=== PATIENT | female | born 1990 | race Caucasian/White ===

== ENCOUNTER 2018-03-13 07:46 | Inpatient (IN) | payer OTHER ==
[~2018-03-13] VITALS: Ht 157.5 cm; Wt 87.0 kg
[2018-03-13] MEDS ORDERED: OXYTOCIN 30U/ 0.9% NaCL 500ML 500 ML IV ONE (20:18)
[2018-03-13] MEDS ORDERED: D5%-LACTATED RINGERS 1,000 ML IV SCH (20:18)
[2018-03-13] MEDS ORDERED: OXYTOCIN 30U/ 0.9% NaCL 500ML 500 ML IV PRN (20:18)
[2018-03-13] MEDS ORDERED: AMPICILLIN 2 GM in SODIUM CHLORIDE 0.9% 100 ML IVPB STA (20:18)
[2018-03-13] MEDS ORDERED: FENTANYL PF 100 MCG/2ML IV PRN (20:30)
[2018-03-13] MEDS ORDERED: TERBUTALINE 1 MG/ML, 1ML IVPush PRN (20:30)
[2018-03-13] MEDS ORDERED: ONDANSETRON 2MG/ML, 2ML IVPush PRN (20:30)
[2018-03-13] MEDS ORDERED: CALCIUM CARBONATE 500 MG TAB.CHEW PO PRN (20:30)
[2018-03-13] MEDS ORDERED: FENTANYL PF 100 MCG/2ML IVPush PRN (20:30)
[2018-03-13] MEDS ORDERED: NEWBORN KIT ONE (20:38)
[2018-03-13] MEDS ORDERED: LIDOCAINE/PF 1%, 30ML ONE (20:38)
[2018-03-13] MEDS ORDERED: OXYTOCIN 30U/ 0.9% NaCL 500ML 500 ML ONE (20:38)
[2018-03-13] MEDS ORDERED: MISOPROSTOL 200 MCG TABLET ONE (20:39)
[2018-03-13] MEDS ORDERED: MISOPROSTOL 25 MCG TABLET ONE (20:39)
[2018-03-13 20:41] LABS: BASOPHILS # (AUTO) 0.06 x10^3/uL (0-0.1); BASOPHILS % (AUTO) 0 % (0-1); EOSINOPHILS # (AUTO) 0.16 x10^3/uL (0-0.4); EOSINOPHILS % (AUTO) 1 % (1-7); LYMPHOCYTES % (AUTO) 12 % (22-44); MD NO; MEAN CORPUSCULAR HEMOGLOBIN 31.6 pg (27.0-34.8); MEAN CORPUSCULAR HGB CONC 34.2 g/dL (32.4-35.8); MEAN CORPUSCULAR VOLUME 92.2 fL (80-100); MEAN PLATELET VOLUME 9.2 fL (7.4-10.4); MONOCYTES # (AUTO) 0.97 x10^3/uL (0.2-0.8); MONOCYTES % (AUTO) 6 % (2-9); NEUTROPHILS # (AUTO) 12.55 x10^3/uL (1.8-6.8); NEUTROPHILS % (AUTO) 81 % (42-75); PLATELET COUNT 243 x10^3/uL (130-400); RED BLOOD COUNT 4.02 x10^6/uL (3.82-5.3); RED CELL DISTRIBUTION WIDTH 13.5 % (9.6-15.2)
[2018-03-13] MEDS: MISOPROSTOL 25 MCG TABLET VG PRN (20:50)
[2018-03-13] MEDS: LACTATED RINGERS 1,000 ML IV SCH (21:35)
[2018-03-14] MEDS ORDERED: AMPICILLIN 1 GM in SODIUM CHLORIDE 0.9% 100 ML IVPB SCH (00:30)
[2018-03-14] MEDS ORDERED: MISOPROSTOL 25 MCG TABLET ONE (02:31)
[2018-03-14] MEDS: MISOPROSTOL 25 MCG TABLET VG PRN (02:54)
[2018-03-14] MEDS: AMPICILLIN 1 GM in SODIUM CHLORIDE 0.9% 100 ML IVPB SCH ×4 (05:20→16:57)
[2018-03-14] MEDS: LACTATED RINGERS 1,000 ML IV SCH ×3 (06:57→12:07)
[2018-03-14] MEDS ORDERED: FENTANYL/BUPIV./NS/PF 250 ML EPIDCONT SCH ×2 (09:34→14:21)
[2018-03-14] MEDS ORDERED: FENTANYL PF 100 MCG/2ML ONE ×2 (10:16→10:21)
[2018-03-14] MEDS ORDERED: BUPIVACAINE 0.25% ONE (10:21)
[2018-03-14] MEDS ORDERED: FENTANYL PF 500 MCG, BUPIVACAINE/PF 0.5%, 30ML 62.5 ML in SODIUM CHLORIDE 0.9% 177.5 ML EPIDCONT SCH (10:30)
[2018-03-14] MEDS ORDERED: LACTATED RINGERS 1,000 ML IV SCH (14:21)
[2018-03-14] MEDS ORDERED: ONDANSETRON 2MG/ML, 2ML IVPush PRN (14:30)
[2018-03-14] MEDS ORDERED: EPHEDRINE 50 MG/ML, 1ML IVPush PRN (14:30)
[2018-03-14] MEDS ORDERED: LACTATED RINGERS 1,000 ML IVBOLUS PRN (14:30)
[2018-03-15] MEDS ORDERED: OXYTOCIN 30U/ 0.9% NaCL 500ML 500 ML IV SCH (05:34)
[2018-03-15] MEDS ORDERED: OXYTOCIN 30U/ 0.9% NaCL 500ML 500 ML ONE (05:34)
[2018-03-15] MEDS ORDERED: METHYLERGONOVINE 0.2 MG/ML IM PRN (06:00)
[2018-03-15] MEDS ORDERED: CARBOPROST TROMETHAMINE 250 MCG/ML, 1ML IM PRN (06:00)
[2018-03-15] MEDS ORDERED: DIPH,PERTUSS(ACELL),TET VAC/PF NC IM-VACC PRN (06:00)
[2018-03-15] MEDS ORDERED: RHOGAM FROM BLOOD BANK 1 NOTE EA IM/IV ONE (06:00)
[2018-03-15] MEDS ORDERED: MEASLES,MUMPS&RUBELLA VACC/PF 0.5 ML SQ PRN (06:00)
[2018-03-15] MEDS ORDERED: MISOPROSTOL 200 MCG TABLET PR PRN (06:00)
[2018-03-15] MEDS ORDERED: MISOPROSTOL 200 MCG TABLET PO PRN (06:00)
[2018-03-15] MEDS ORDERED: ACETAMINOPHEN 325 MG TABLET PO PRN (06:00)
[2018-03-15 08:15] VITALS: BP 117/75
[2018-03-15] MEDS: PRENATAL VIT/IRON/FA 1 EACH TABLET PO SCH (08:33)
[2018-03-15] MEDS: DOCUSATE 100 MG CAPSULE PO PRN ×2 (08:33→20:28)
[2018-03-15] MEDS: OXYcodone/APAP 5/325MG TABLET PO PRN ×3 (08:34→16:57)
[2018-03-15] MEDS: IBUPROFEN 600 MG TABLET PO PRN ×3 (08:34→20:28)
[2018-03-15 12:30] VITALS: BP 111/69
[2018-03-15 14:22] LABS: MEAN CORPUSCULAR HEMOGLOBIN 31.5 pg (27.0-34.8); MEAN CORPUSCULAR HGB CONC 34.3 g/dL (32.4-35.8); MEAN CORPUSCULAR VOLUME 91.8 fL (80-100); MEAN PLATELET VOLUME 9.2 fL (7.4-10.4); PLATELET COUNT 200 x10^3/uL (130-400); RED BLOOD COUNT 3.93 x10^6/uL (3.82-5.3); RED CELL DISTRIBUTION WIDTH 13.6 % (9.6-15.2)
[2018-03-15 15:15] LABS: MD YES
[2018-03-15 15:21] LABS: BANDS%(MANUAL) 6 % (0-7); EOS#(MANUAL) 0.27 x10^3/uL (0.0-0.4); EOS% (MANUAL) 1 % (1-7); LYMPH#(MANUAL) 2.39 x10^3/uL (1-3.4); LYMPHS% (MANUAL) 9 % (22-44); MONOS#(MANUAL) 1.33 x10^3/uL (0.3-2.7); MONOS% (MANUAL) 5 % (2-9); SEG#(MANUAL) 21.01 x10^3/uL (1.8-6.8); SEGS% (MANUAL) 79 % (42-75)
[2018-03-15 15:22] LABS: <PLATELET ESTIMATE> ADEQUATE; <PLT MORPHOLOGY> NORMAL PLT MORPH; ANISOCYTOSIS 1+; POLYCHROMASIA 1+
[2018-03-15 16:30] VITALS: BP 104/68
[2018-03-15 19:53] VITALS: BP 117/75
[2018-03-16 00:45] VITALS: BP 99/65
[2018-03-16 04:20] VITALS: BP 105/68
[2018-03-16] MEDS: IBUPROFEN 600 MG TABLET PO PRN ×2 (05:00→12:24)
[2018-03-16] MEDS: OXYcodone/APAP 5/325MG TABLET PO PRN ×2 (05:05→12:24)
[2018-03-16 07:34] VITALS: BP 99/66
[2018-03-16] MEDS: DOCUSATE 100 MG CAPSULE PO PRN (08:06)
[2018-03-16] MEDS: PRENATAL VIT/IRON/FA 1 EACH TABLET PO SCH (08:06)
[2018-03-16] MEDS ORDERED: IBUP-1222 PO (09:51)
[2018-03-16] MEDS ORDERED: OXYC-302 PO (09:52)
== END 2018-03-16 12:50 | disposition home or self-care (01) | DRG 807 ==
LOC: LDIP 19:51 → 2NW 03-15 07:57
PROVIDERS: ADMIT Obstetrics & Gynecology Maternal & Fetal Medicine; ATTEND Obstetrics & Gynecology Maternal & Fetal Medicine
PROC: 10E0XZZ Delivery of Products of Conception, External Approach (ICD-10-PCS; principal; 2018-03-15)
PROC: 0KQM0ZZ Repair Perineum Muscle, Open Approach (ICD-10-PCS; 2018-03-15)
PROC: 3E033VJ Introduction of Other Hormone into Peripheral Vein, Percutaneous Approach (ICD-10-PCS; 2018-03-15)
PROC: 10907ZC Drainage of Amniotic Fluid, Therapeutic from Products of Conception, Via Natural or Artificial Opening (ICD-10-PCS; 2018-03-15)
PROC: 10H07YZ Insertion of Other Device into Products of Conception, Via Natural or Artificial Opening (ICD-10-PCS; 2018-03-15)
PROC: 3E0R3BZ Introduction of Anesthetic Agent into Spinal Canal, Percutaneous Approach (ICD-10-PCS; 2018-03-15)
PROC: 00HU33Z Insertion of Infusion Device into Spinal Canal, Percutaneous Approach (ICD-10-PCS; 2018-03-15)
DX: O69.1XX0 Labor and delivery complicated by cord around neck, with compression, not applicable or unspecified (principal); Z37.0 Single live birth; O70.1 Second degree perineal laceration during delivery; Z3A.39 39 weeks gestation of pregnancy; O99.824 Streptococcus B carrier state complicating childbirth; G89.18 Other acute postprocedural pain; O64.0XX0 Obstructed labor due to incomplete rotation of fetal head, not applicable or unspecified
CPT/HCPCS: 36415; 82803; 85025; 86850; 86900; G0378; J0290; J3010; J7120

== ENCOUNTER 2020-05-10 07:22 | Inpatient (IN) | payer OTHER ==
[~2020-05-10] VITALS: Ht 157.5 cm; Wt 86.0 kg
[~2020-05-10 07:22] MED LIST: IBUP-1222 PO; OXYC-302 PO
[2020-05-11] MEDS ORDERED: MISOPROSTOL 25 MCG TABLET VG PRN
[2020-05-11] MEDS ORDERED: METOCLOPRAMIDE 5 MG/ML, 2ML IVPush PRN
[2020-05-11] MEDS ORDERED: TERBUTALINE 1 MG/ML, 1ML IVPush PRN
[2020-05-11] MEDS ORDERED: D5%-LACTATED RINGERS 1,000 ML IV SCH
[2020-05-11] MEDS ORDERED: FENTANYL PF 100 MCG/2ML IV PRN
[2020-05-11] MEDS ORDERED: TERBUTALINE 1 MG/ML, 1ML SQ PRN
[2020-05-11] MEDS ORDERED: FENTANYL PF 100 MCG/2ML IVPush PRN
[2020-05-11] MEDS ORDERED: SODIUM CITRATE/CITRIC ACID 30 ML UDC PO PRN
[2020-05-11] MEDS ORDERED: OXYTOCIN 30U/ 0.9% NaCL 500ML 500 ML IV ONE
[2020-05-11] MEDS ORDERED: ONDANSETRON 2MG/ML, 2ML IVPush PRN
[2020-05-11] MEDS ORDERED: CALCIUM CARBONATE 500 MG TAB.CHEW PO PRN
[2020-05-11 00:04] LABS: BASOPHILS % (AUTO) 1 % (0-1); EOSINOPHILS % (AUTO) 1 % (1-7); LYMPHOCYTES % (AUTO) 15 % (22-44); MEAN CORPUSCULAR HEMOGLOBIN 30.8 pg (27.0-34.8); MEAN CORPUSCULAR HGB CONC 34.3 g/dL (32.4-35.8); MEAN PLATELET VOLUME 9.2 fL (7.4-10.4); MONOCYTES % (AUTO) 7 % (2-9); NEUTROPHILS % (AUTO) 76 % (42-75); PLATELET COUNT 220 x10^3/uL (130-400); RED BLOOD COUNT 3.68 x10^6/uL (3.82-5.3); RED CELL DISTRIBUTION WIDTH 14.2 % (9.6-15.2)
[2020-05-11] MEDS ORDERED: LIDOCAINE 1%, 20ML ONE (00:05)
[2020-05-11] MEDS ORDERED: NEWBORN KIT ONE (00:05)
[2020-05-11] MEDS ORDERED: MISOPROSTOL 25 MCG TABLET ONE (00:06)
[2020-05-11] MEDS ORDERED: OXYTOCIN 30U/ 0.9% NaCL 500ML 500 ML ONE ×2 (00:06→10:22)
[2020-05-11] MEDS ORDERED: MISOPROSTOL 200 MCG TABLET ONE (00:06)
[2020-05-11 00:29] LABS: MD SCAN
[2020-05-11] MEDS ORDERED: OXYTOCIN 30U/ 0.9% NaCL 500ML 500 ML IV PRN ×2 (06:30)
[2020-05-11] MEDS: LACTATED RINGERS 1,000 ML IV SCH ×2 (06:30→09:11)
[2020-05-11] MEDS ORDERED: PENICILLIN GK 5,000,000 UNITS in DEXTROSE 5% 100 ML IVPB ONE (06:30)
[2020-05-11] MEDS ORDERED: FENTANYL/BUPIV./NS/PF 250 ML EPIDCONT ONE (09:11)
[2020-05-11] MEDS ORDERED: LIDOCAINE/PF 1.5% EPI 1:200K, 10 ML ONE (09:12)
[2020-05-11] MEDS ORDERED: BUPIVACAINE 0.25% ONE (09:12)
[2020-05-11] MEDS ORDERED: FENTANYL/BUPIV./NS/PF 250 ML EPIDCONT SCH (09:30)
[2020-05-11] MEDS ORDERED: LACTATED RINGERS 1,000 ML IVBOLUS PRN (09:30)
[2020-05-11] MEDS ORDERED: EPHEDRINE 50 MG/ML, 1ML IVPush PRN (09:30)
[2020-05-11] MEDS ORDERED: NALOXONE 0.4 MG/ML, 1ML IVPush PRN (09:30)
[2020-05-11] MEDS ORDERED: LACTATED RINGERS 1,000 ML IV SCH (09:30)
[2020-05-11] MEDS: PENICILLIN GK 2,500,000 UNITS in DEXTROSE 5% 100 ML IVPB SCH ×3 (10:24→14:30)
[2020-05-11] MEDS ORDERED: ACETAMINOPHEN 325 MG TABLET PO PRN ×2 (15:30)
[2020-05-11] MEDS ORDERED: METHYLERGONOVINE 0.2 MG/ML IM PRN (15:30)
[2020-05-11] MEDS ORDERED: CARBOPROST TROMETHAMINE 250 MCG/ML, 1ML IM PRN (15:30)
[2020-05-11] MEDS ORDERED: MISOPROSTOL 200 MCG TABLET PR PRN (15:30)
[2020-05-11] MEDS ORDERED: DIPH,PERTUSS(ACELL),TET VAC/PF NC IM-VACC PRN (15:30)
[2020-05-11] MEDS ORDERED: SIMETHICONE 80 MG CHEW TAB PO PRN (15:30)
[2020-05-11] MEDS ORDERED: OXYcodone/APAP 5/325MG TABLET PO PRN ×2 (15:30)
[2020-05-11] MEDS: OXYTOCIN 30U/ 0.9% NaCL 500ML 500 ML IV SCH (15:35)
[2020-05-11 16:45] VITALS: BP 103/67
[2020-05-11] MEDS: IBUPROFEN 600 MG TABLET PO PRN (18:34)
[2020-05-11] MEDS: DOCUSATE 100 MG CAPSULE PO PRN (19:31)
[2020-05-11 19:33] VITALS: BP 104/63
[2020-05-11 23:25] LABS: BASOPHILS % (AUTO) 0 % (0-1); EOSINOPHILS % (AUTO) 1 % (1-7); LYMPHOCYTES % (AUTO) 10 % (22-44); MEAN CORPUSCULAR HEMOGLOBIN 31.1 pg (27.0-34.8); MEAN CORPUSCULAR HGB CONC 34.5 g/dL (32.4-35.8); MEAN PLATELET VOLUME 9.4 fL (7.4-10.4); MONOCYTES % (AUTO) 6 % (2-9); NEUTROPHILS % (AUTO) 82 % (42-75); PLATELET COUNT 231 x10^3/uL (130-400); RED BLOOD COUNT 3.88 x10^6/uL (3.82-5.3)
[2020-05-11 23:43] LABS: MD SCAN
[2020-05-12] MEDS: IBUPROFEN 600 MG TABLET PO PRN ×3 (00:20→14:44)
[2020-05-12 00:27] VITALS: BP 107/66
[2020-05-12] MEDS: OXYTOCIN 30U/ 0.9% NaCL 500ML 500 ML IV SCH ×2 (01:30→05:08)
[2020-05-12 04:00] VITALS: BP 115/73
[2020-05-12] MEDS: DOCUSATE 100 MG CAPSULE PO PRN (08:12)
[2020-05-12 08:14] VITALS: BP 117/73
[2020-05-12] MEDS ORDERED: PRENATAL VIT/IRON/FA 1 EACH TABLET PO SCH (09:00)
[2020-05-12 14:00] VITALS: BP 125/84
== END 2020-05-12 16:00 | disposition home or self-care (01) | DRG 807 ==
LOC: LDIP 23:08 → 2NW 05-11 16:22
PROVIDERS: ADMIT Obstetrics & Gynecology Maternal & Fetal Medicine; ATTEND Obstetrics & Gynecology Maternal & Fetal Medicine
PROC: 10E0XZZ Delivery of Products of Conception, External Approach (ICD-10-PCS; principal; 2020-05-11)
PROC: 0HQ9XZZ Repair Perineum Skin, External Approach (ICD-10-PCS; 2020-05-11)
PROC: 3E0R3BZ Introduction of Anesthetic Agent into Spinal Canal, Percutaneous Approach (ICD-10-PCS; 2020-05-11)
PROC: 00HU33Z Insertion of Infusion Device into Spinal Canal, Percutaneous Approach (ICD-10-PCS; 2020-05-11)
DX: O70.0 First degree perineal laceration during delivery (principal); Z37.0 Single live birth; Z3A.39 39 weeks gestation of pregnancy; Z20.822 Contact with and (suspected) exposure to COVID-19
CPT/HCPCS: 36415; 85025; 86592; 86850; 86900; 87635; G0378; J2540; J2590; J7120